=== PATIENT | male | born 1945 | race Caucasian/White ===

== ENCOUNTER 2019-11-14 10:17 | Outpatient (CLI) | payer MEDICARE, BC, SELFPAY ==
--- NOTE | ~2019-11-14 | CT_ITS ---
EXAMINATION: CT lung screening EXAM DATE: 11/14/2019 10:42 INDICATION: Personal history of nicotine dependence. TECHNIQUE: Spiral low dose CT of the chest without contrast. Axial, coronal and sagittal images were reviewed. The dose-length product (DLP) for this examination was 226.10 mGy-cm. The exposure was t ailored according to patient size (auto mA exposure control), and iterative reconstruction (ASIR) was used as additional dose reduction technique. Comparison is made to prior examination from 10/11/2017. FINDINGS: There is mild to moderate emphysema. Some dependent groundglass atelectasis. There is 3 mm nodule along the right minor fissure, unchanged. Tracheobronchial tree is patent. There is no med iastinal, hilar or axillary lymphadenopathy. Small pericardial effusion. There is no pneumothorax. Heart normal in size. There is moderate coronary arterial calcification, arterial sclerosis. Upp er abdomen is unremarkable. There is thoracic spondylosis without osteoblastic or osteolytic lesion s identified. IMPRESSION: Lung-RADS category 2, benign appearance or behavior (<1% chance of malignancy); recommend continued LDCT screening in 1 year. Reviewed, dictated and finalized at location B.
== END 2019-11-14 10:18 | disposition home or self-care (01) ==
LOC: ANHIMG 10:20
PROVIDERS: PCP Family Medicine; Visit Provider Family Medicine
DX: Z12.2 Encounter for screening for malignant neoplasm of respiratory organs (principal); R91.1 Solitary pulmonary nodule; Z87.891 Personal history of nicotine dependence
CPT/HCPCS: G0297

== ENCOUNTER 2020-11-14 11:31 | Outpatient (CLI) | payer MEDICARE, BC, SELFPAY | END 2020-11-14 11:32 | disposition home or self-care (01) | LOC: ANHCOVIDVC 11:31 | PROVIDERS: PCP Family Medicine | DX: Z23 Encounter for immunization (principal) | CPT/HCPCS: 0001A; 91300 ==

== ENCOUNTER 2020-11-26 10:48 | Outpatient (CLI) | payer MEDICARE, BC, SELFPAY ==
--- NOTE | ~2020-11-26 | CT_ITS ---
EXAMINATION: CT lung screening DATE: 11/26/2020 11:12 INDICATION: Personal history of nicotine dependence TECHNIQUE: Computed tomography (CT) of the chest was performed without intravenous contrast. The dose -length product was 90.68 mGy-cm. Automated exposure control and iterative reconstruction technique w ere employed. COMPARISON: CTs dated 11/14/2019 and 10/21/2017 FINDINGS: There is atherosclerosis of the aorta and coronary arteries. Chronic small pericardial effu saul. No significant pleural effusion. Small hiatal hernia. No thoracic lymphadenopathy. The upper ab domen is otherwise unremarkable. There is severe emphysema. No endobronchial lesions. Stable 3 mm fis sural nodule on the right. Calcified granuloma right upper lobe. Dependent atelectasis. No new pulmon ml nodules or masses. IMPRESSION: 1. Lung-RADS category 2: Benign appearance or behavior. Continue annual screening with noncontrast lo w-dose chest CT in 12 months. Reviewed, dictated and finalized at location A. IMPRESSION: 1. Lung-RADS category 2: Benign appearance or behavior. Continue annual screeni ng with noncontrast low-dose chest CT in 12 months.
== END 2020-11-26 10:49 | disposition home or self-care (01) ==
PROVIDERS: PCP Family Medicine; Visit Provider Family Medicine
DX: Z12.2 Encounter for screening for malignant neoplasm of respiratory organs (principal); Z87.891 Personal history of nicotine dependence
CPT/HCPCS: 71271

== ENCOUNTER 2020-12-05 11:29 | Outpatient (CLI) | payer MEDICARE, BC, SELFPAY | END 2020-12-05 11:30 | disposition home or self-care (01) | LOC: ANHCOVIDVC 11:29 | PROVIDERS: PCP Family Medicine | DX: Z23 Encounter for immunization (principal) | CPT/HCPCS: 0002A; 91300 ==

== ENCOUNTER 2021-07-28 14:31 | Outpatient (CLI) | payer MEDICARE, BC, SELFPAY ==
--- NOTE | 2021-07-29 07:03 | WPDSIXMINUTE ---
Six Minute Walk Procedure Procedure Performed Pulmonary Stress Test (6 min walk) Six Minute Walk This is a 6 minute walk test. The test was performed and interpreted in accordance with the 2014 ERS/ATS task force guidelines. Findings: The patient's resting room air oxygen saturation measured by pulse oximetry was 89% and heart rate was 110 bpm. Patient ambulated for 152 meters and oxygen saturation remained 89 to 92%. Heart rate at the end of the study was 115 bpm. The patient did not qualify for supplemental oxygen at rest or with ambulation. There are no prior studies for comparison.
--- NOTE | 2021-07-29 07:05 | WPDPFTINT ---
PFT Procedure Performed PFT Procedure Performed Spirometry with Pre/Post Bronchodilator Plethysmography (Lung Vol) Diffusing Cap (DLCO) Flow Vol Loop PFT Interpretation This is a pulmonary function test with pre and post-bronchodilator spirometry, plethysmography and diffusing capacity. The test was performed and results interpreted in accordance with the 2019 and 2005 ATS/ERS Task Force guidelines respectively using the Global Lung Function Initiative-2012 reference equations. Patient demonstrated good effort and cooperation. Reproducibility criteria were met. The quality of the pre bronchodilator spirometry maneuver was Grade A and post bronchodilator spirometry maneuver was Grade A. Findings: Spirometry: There is decreased maximal expiratory airflow at low lung volumes with concave expiratory flow tracing. The pre bronchodilator FVC is 3.76 L, 99% predicted. The pre bronchodilator FEV1 is 2.35 L, 83% predicted. The FEV1: FVC ratio 62%. The post bronchodilator FVC is 3.92 L, representing a 4% increase. The post bronchodilator FEV1 is 2.42 L, representing a 3% increase. The post bronchodilator FEV1: FVC ratio is 62%. Plethysmography: The total lung capacity is 6.86 L, 100% predicted. Functional residual capacity is 4.41 L, 120% predicted. The residual volume is 2.69 L, 105% predicted. Diffusing capacity: The absolute diffusion capacity is 13.3, 56% predicted. The diffusing capacity corrected for alveolar volume is 2.84, 76% predicted. Impression: There is a mild obstructive abnormality with a normal FEV1 and wihtout significant improvement after inhaling a single dose of albuterol. The lung volumes are normal. The absolute diffusing capacity is moderately decreased and normalizes when corrected for alveolar volume. There are no prior studies for comparison
== END 2021-07-28 14:32 | disposition home or self-care (01) ==
LOC: ANHPFT 14:33
PROVIDERS: PCP Family Medicine; Visit Provider Internal Medicine Pulmonary Disease
DX: R06.00 Dyspnea, unspecified (principal); R94.2 Abnormal results of pulmonary function studies
CPT/HCPCS: 94060; 94618; 94726; 94729

== ENCOUNTER 2022-03-24 12:34 | Outpatient (CLI) | payer MEDICARE, BC, SELFPAY ==
--- NOTE | ~2022-03-24 | CT_ITS ---
EXAMINATION:CT diagnostic chest wo con DATE: 03/24/2022 13:18 INDICATION: Pulmonary nodule. TECHNIQUE: Computed tomography (CT) of the chest was performed without intravenous contrast. Automate d exposure control and iterative reconstruction technique were employed. The dose-length product (DLP ) was 98.33 mGy-cm. COMPARISON: Chest CT 11/26/2020 FINDINGS: There is moderate emphysema. There is a stable 3 mm nodule at minor fissure, likely benign. There is chronic septal thickening in the inferior lungs associated with mild groundglass opacities. No bronchiectasis or honeycombing. No pleural effusion. The heart size is normal. There are coronary artery calcifications. There is a small pericardial effusion. There is mild thoracic spondylosis. Th ere are bridging endplate osteophytes at multiple levels in the spine, consistent with diffuse idiopa thic skeletal hyperostosis (DISH). IMPRESSION: 1. Stable small pulmonary nodule, likely benign. 2. Moderate emphysema and chronic interstitial lung disease. 3. Stable small pericardial effusion. Reviewed, dictated and finalized at location A.
== END 2022-03-24 12:35 | disposition home or self-care (01) ==
PROVIDERS: PCP Family Medicine; Visit Provider Physician Assistant
DX: R91.1 Solitary pulmonary nodule (principal); I31.3 Pericardial effusion (noninflammatory); J43.9 Emphysema, unspecified
CPT/HCPCS: 71250

== ENCOUNTER 2023-04-07 09:28 | Outpatient (CLI) | payer MEDICARE, OTHER, SELFPAY ==
--- NOTE | ~2023-04-07 | NM_ITS ---
EXAMINATION: NM bone scan whole body DATE: 04/07/2023 13:42 INDICATION: Prostate cancer TECHNIQUE: 5.1 mCi Tc-99m HDP was administered intravenously. Delayed whole-body scintigrams were ob tained. COMPARISON: CT abdomen and pelvis dated 04/07/2023 FINDINGS: 1 asymmetric likely degenerative uptake at the radial aspect of the bilateral carpi. There is mild up take associated with prominent nearly bridging endplate osteophytes along the right side of the mid t o lower thoracic and upper lumbar spine. Additional small focus of mild increased uptake at the anter ior right sixth rib which appears to correspond to mild hypertrophic osteophytes at a pseudoarticulat ion between the costal cartilage of the anterior right sixth and seventh ribs. No other suspicious fo ci of abnormal bone uptake to suggest osseous metastatic disease. IMPRESSION: 1. No evident osseous metastatic disease. Reviewed, dictated and finalized at location A.
--- NOTE | ~2023-04-07 | CT_ITS ---
CT of the Abdomen and Pelvis: Indication: Prostate cancer Technique: 2.5 mm axial scans were obtained through the abdomen and pelvis following intravenous adm inistration of 100 cc of Omnipaque 350. Dose reduction technique was used on this scan by utilizing a utomated exposure control and iterative reconstruction technique. The dose-length product (DLP) was 5 45.24 mGy-cm. Findings: Scans through the lung bases demonstrates small pericardial effusion. There is probable diffuse fatty infiltration of the liver. The spleen, pancreas, gallbladder, adrenal s and kidneys are within normal limits. There are atherosclerotic calcifications of the aorta. No ly mphadenopathy. No bowel obstruction or bowel wall thickening. There is no evidence to suggest acute appendicitis. Images through the pelvis were performed. Urinary bladder unremarkable. Prostate gland is mildly enla rged. No ascites. Impression: No CT evidence for metastatic disease. Consider PSMA PET/CT scan, as indicated. Mildly enlarged prostate gland. Diffuse fatty infiltration of liver. Small pericardial effusion. Reviewed, dictated and finalized at location . Impression: No CT evidence for metastatic disease. Consider PSMA PET/CT scan, as indicated. Mildly enlarged prostate gland. Diffuse fatty infiltration of liver. Small pericardial effusion.
[2023-04-07 10:40] LABS: Estimated Glomerular Filt Rate 58
== END 2023-04-07 09:29 | disposition home or self-care (01) ==
PROVIDERS: PCP Family Medicine; Visit Provider Urology
DX: C61 Malignant neoplasm of prostate (principal); K76.0 Fatty (change of) liver, not elsewhere classified; I31.39 Other pericardial effusion (noninflammatory)
CPT/HCPCS: 74177; 78306; A9503; Q9967

== ENCOUNTER 2023-10-19 12:20 | Outpatient (CLI) | payer MEDICARE, OTHER, SELFPAY ==
--- NOTE | 2023-10-20 14:29 | WPDSIXMINUTE ---
Six Minute Walk Procedure Procedure Performed Pulmonary Stress Test (6 min walk) Six Minute Walk Six Minute Walk: This 6 minute walk test was carried out with the patient breathing ambient air. The pre walk oxyhemoglobin saturation was 93%. The patient walked 305 m with no stops during testing. During the walk the oxyhemoglobin saturation remained in the range of 90% to 93%. Impression: No evidence of oxyhemoglobin desaturation on this testing.
== END 2023-10-19 12:21 | disposition home or self-care (01) ==
LOC: ANHPFT 12:22
PROVIDERS: PCP Family Medicine; Visit Provider Physician Assistant
DX: J44.9 Chronic obstructive pulmonary disease, unspecified (principal)
CPT/HCPCS: 94618